=== PATIENT | female | born 1955 | race Caucasian/White ===

== ENCOUNTER 2017-03-30 15:51 | Observation (INO) ==
[2017-03-30] MEDS ORDERED: SODIUM CHLORIDE 0.9% 100 ML IV ONE (16:08)
[2017-03-30] MEDS ORDERED: DILTIAZEM 100 MG VIAL.ADD IV ONE (16:08)
[2017-03-30] MEDS ORDERED: DILTIAZEM 50 MG/10 ML VIAL IV ONE (16:08)
[2017-03-30] MEDS ORDERED: SODIUM CHLORIDE 0.9% 500 ML IV STA (16:19)
[2017-03-30] MEDS ORDERED: DILTIAZEM 50 MG/10 ML VIAL IV STA ×2 (16:19→16:33)
[2017-03-30 16:28] LABS: Basophils # 0.1 10*3/uL (0.0-0.2); Basophils % 1.4 % (0.0-0.8); Eosinophils # 0.2 10*3/uL (0.0-0.87); Eosinophils % 1.9 % (0.00-10.9); Hematocrit 42.4 VOL% (35.7-47.0); Hemoglobin 14.8 GM/DL (12.0-16.0); Immature Granulocytes % 0.5 %; Immature Granulocytes Absolute 0.05 #; Lymphocytes # 2.4 10*3/uL (1.4-4.0); Lymphocytes % 23.1 % (21.3-54.2); Mean Corpuscular HGB Conc 34.9 GM/DL (32-36); Mean Corpuscular Hemoglobin 29 PG (27-34); Mean Corpuscular Volume 83.1 FL (87-102); Mean Platelet Volume 9.5 FL (9.6-12.0); Monocytes # 0.9 10*3/uL (0.11-0.8); Monocytes % 8.3 % (1.7-12.7); Neutrophils # 6.6 10*3/uL (1.4-7.4); Neutrophils % 64.8 % (38.7-73.9); Platelet Count 287 T/CUMM (130-400); Red Cell Distribution Width 12.5 % (9.3-17.3); White Blood Count 10.2 T/CUMM (4-12)
[2017-03-30] MEDS ORDERED: DILTIAZEM INJ 100 MG in SODIUM CHLORIDE 0.9% 100 ML IV SCH (16:30)
[2017-03-30 16:33] LABS: PT Patient Result 10.7 SECS; Partial Thromboplastin Time 26.8 SECS (0-40)
[2017-03-30 16:50] LABS: Alanine Aminotransferase 52 U/L (13-56); Albumin 4.2 G/DL (3.4-5.0); Alkaline Phosphatase 76 U/L (45-117); Aspartate Amino Transferase 24 U/L (0-37); Bilirubin,Total < 0.39 MG/DL (0.2-1.0); Blood Urea Nitrogen 19 MG/DL (7-18); Calcium 9.1 MG/DL (8.5-10.1); Glucose 234 MG/DL (74-106); Osmolality,Calculated 277.2 MOS/KG (273-304); Potassium 3.8 MMOL/L (3.5-5.1); Sodium 134 MMOL/L (136-145); Thyroid Stimulating Hormone 0.796 uIU/ml (0.358-3.74); Total Protein 7.3 G/DL (6.4-8.3); Troponin I Only < 0.015 NG/ML (0.00-0.045)
[2017-03-30] MEDS ORDERED: MIDAZOLAM 10 MG/2 ML VIAL ONE (17:21)
[2017-03-30] MEDS ORDERED: DEXTROSE 50% 25 GM/50 ML VIAL IV PRN (17:58)
[2017-03-30] MEDS ORDERED: MAGNESIUM SULF RIDER 2 GM in PREMIX 1 EACH IV PRN (17:58)
[2017-03-30] MEDS ORDERED: GLUCAGON 1 MG VIAL IM PRN (17:58)
[2017-03-30] MEDS ORDERED: ACETAMINOPHEN 325 MG TABLET PO PRN (17:58)
[2017-03-30] MEDS ORDERED: ZALEPLON 5 MG CAPSULE PO PRN (17:58)
[2017-03-30] MEDS ORDERED: MAGNESIUM SULF RIDER 4 GM in PREMIX 1 EACH IV PRN (17:58)
[2017-03-30] MEDS: APIXABAN 5 MG TABLET PO SCH (21:04)
[2017-03-31] MEDS ORDERED: PNEUMOCOCCAL VACCINE (13 VALENT) 0.5 ML SYRINGE IM ONE (04:55)
[2017-03-31] MEDS: APIXABAN 5 MG TABLET PO SCH (10:15)
[2017-03-31 12:06] VITALS: BP 110/60
== END 2017-03-31 10:21 | disposition home or self-care (01) ==
LOC: N.EDINP 15:51 → N.ED 15:51 → N.EDINP 19:19 → N.TELES 19:25
PROVIDERS: ADMIT Internal Medicine Cardiovascular Disease; ATTEND Internal Medicine Cardiovascular Disease